=== PATIENT | female | born 1985 | race Caucasian/White ===

== ENCOUNTER 2017-09-26 10:56 | Emergency (ER) | payer OTHER ==
[~2017-09-26] VITALS: Ht 154.9 cm; Wt 46.8 kg
[2017-09-26 10:57] VITALS: BP 114/74; PULSE 115; RESP 17; TEMP 99.2; O2SAT 100
[2017-09-26 12:04] LABS: AUTOMATED NEUTROPHIL # 1.5 TH/MM3 (1.8-7.7); BASOPHIL % 1.4 % (0.0-2.0); EOSINOPHIL % 0.2 % (0.0-4.0); HEMATOCRIT 38.8 % (35.0-46.0); HEMOGLOBIN 13.1 GM/DL (11.6-15.3); LYMPH % 17.1 % (9.0-44.0); LYMPHOCYTE # 0.4 TH/MM3 (1.0-4.8); MEAN CELL VOLUME 89.4 FL (80.0-100.0); MEAN CORPUSCULAR HEMOGLOBIN 30.1 PG (27.0-34.0); MEAN CORPUSCULAR HGB CONC 33.7 % (32.0-36.0); MEAN PLATELET VOLUME 7.7 FL (7.0-11.0); MONO % 6.8 % (0.0-8.0); MONOCYTE # 0.1 TH/MM3 (0-0.9); NEUT % 74.5 % (16.0-70.0); PLATELET COUNT 158 TH/MM3 (150-450); RED BLOOD COUNT 4.34 MIL/MM3 (4.00-5.30); RED CELL DISTRIBUTION WIDTH 12.4 % (11.6-17.2)
[2017-09-26 12:05] LABS: ALBUMIN 4.3 GM/DL (3.4-5.0); AST (GOT) 41 U/L (15-37); BICARBONATE 27.5 MEQ/L (21.0-32.0); BLOOD UREA NITROGEN 7 MG/DL (7-18); CALCIUM 8.8 MG/DL (8.5-10.1); CHLORIDE 99 MEQ/L (98-107); CREATININE 0.92 MG/DL (0.50-1.00); GLOMERULAR FILTRATION RATE 71 ML/MIN (>89); GLUCOSE,RANDOM 121 MG/DL (74-106); SODIUM (NA) 132 MEQ/L (136-145)
[2017-09-26 12:07] LABS: ALT (GPT) 45 U/L (10-53)
[2017-09-26 12:08] LABS: ALKALINE PHOSPHATASE 59 U/L (45-117); TOTAL BILIRUBIN ADULT 0.2 MG/DL (0.2-1.0); TOTAL PROTEIN 8.5 GM/DL (6.4-8.2)
[2017-09-26 13:11] LABS: BILIRUBIN, URINE NEG (NEG); BLOOD, URINE NEG (NEG); GLUCOSE,URINE NEG (NEG); KETONE, URINE NEG (NEG); NITRITE,URINE NEG (NEG); SQUAMOUS EPITHELIAL CELL URINE 1 /hpf (0-5); URINE COLOR LIGHT-YELLOW (YELLW/STRAW); URINE LEUKOCYTE ESTERASE NEG (NEG)
[2017-09-26 14:13] VITALS: BP 107/79; PULSE 110; RESP 16; O2SAT 100
[2017-09-26] MEDS ORDERED: PLAQ200T PO (14:16)
--- NOTE | 2017-09-26 14:33 | PD ---
HPI Chief Complaint: Flank/Kidney Pain Time Seen by Provider: 13:54 Travel History International Travel<30 days: No Contact w/Intl Traveler<30days: No Traveled to known affect area: No History of Present Illness HPI 32-year-old female complains of fever, headache, low back pain, low abdominal pain, dysuria. Patient states that the symptoms started about 10 days ago. Patient has history of Sogren's syndrome and on Plaquenil. Patient was seen by personal physician last week and was put on prescription for Bactrim DS for possible UTI. Patient on day #6 of Bactrim DS. Patient states that the dysuria resolved however patient had persistent headache, low back pain, fever, low abdominal pain. Patient had outpatient blood test done 4 days ago. Blood test shows mild low WBC count. Patient was advised by personal physician to the ED for evaluation. Patient states that she had low-grade fever at home. Patient states that she has aching pain localized low back and lower abdomen. Patient denies any dysuria today. Patient denies any vaginal discharge or bleeding. PFSH Past Medical History Autoimmune Disease: Yes (SJOGRENS SYNDROME) ?: Not LMP: 08/29/17 Past Surgical History Section: Yes Gynecologic Surgery: Yes Social History Alcohol Use: No Tobacco Use: No Substance Use: No Allergies-Medications (Allergen,Severity, Reaction): Coded Allergies: No Known Allergies (Unverified , 09/26/17) Reported Meds & Prescriptions Reported Meds & Active Scripts Active Reported Plaquenil (Hydroxychloroquine Sulfate) 200 Mg Tab 200 Mg PO BID Take with food Review of Systems General / Constitutional: Positive: Fever Eyes: No: Visual changes HENT: Positive: Headaches Cardiovascular: No: Chest Pain or Discomfort Respiratory: No: Shortness of Breath Gastrointestinal: Positive: Abdominal Pain Genitourinary: No: Dysuria Musculoskeletal: No: Pain Skin: No Rash Neurologic: No: Weakness Psychiatric: No: Depression Endocrine: No: Polydipsia Hematologic/Lymphatic: No: Easy Bruising Physical Exam Narrative GENERAL: Well-nourished, well-developed patient. SKIN: Focused skin assessment warm/dry. HEAD: Normocephalic. EYES: No scleral icterus. No injection or drainage. Pupils 2 mm equal reactive. NECK: Supple, trachea midline. No JVD or lymphadenopathy. No meningismus CARDIOVASCULAR: Regular rate and rhythm without murmurs, gallops, or rubs. RESPIRATORY: Breath sounds equal bilaterally. No accessory muscle use. GASTROINTESTINAL: Abdomen soft, nondistended. Mild tenderness on palpation low abdomen area, no rebound tenderness. No mass. MUSCULOSKELETAL: No cyanosis, or edema. BACK: mild tenderness on palpation lumbar area, without obvious deformity. No CVA tenderness. Neurologic exam normal. Data Data Last Documented VS Vital Signs Date Time Temp Pulse Resp B/P (MAP) Pulse Ox O2 Delivery O2 Flow Rate FiO2 09/26/17 14:13 110 16 107/79 (88) 100 09/26/17 10:57 99.2 Orders Orders Complete Blood Count With Diff (09/26/17 11:15) Comprehensive Metabolic Panel (09/26/17 11:15) Urinalysis - C+S If Indicated (09/26/17 11:15) Ed Urine Pregnancytest Poc (09/26/17 11:15) Lactic Acid Sepsis Protocol (09/26/17 11:15) Mri L Spine W&W/O Contrast (09/26/17 ) Ct Abd/Pel W Iv Contrast(Rout) (09/26/17 14:24) Ct Brain W/O Iv Contrast(Rout) (09/26/17 14:24) Iohexol 350 Inj (Omnipaque 350 Inj) (09/26/17 14:50) Gadodiamide Pf Inj (Omniscan Pf Inj) (09/26/17 15:39) Ed Discharge Order (09/26/17 16:39) Labs Laboratory Tests Test 09/26/17 11:27 09/26/17 12:50 White Blood Count 2.0 TH/MM3 Red Blood Count 4.34 MIL/MM3 Hemoglobin 13.1 GM/DL Hematocrit 38.8 % Mean Corpuscular Volume 89.4 FL Mean Corpuscular Hemoglobin 30.1 PG Mean Corpuscular Hemoglobin Concent 33.7 % Red Cell Distribution Width 12.4 % Platelet Count 158 TH/MM3 Mean Platelet Volume 7.7 FL Neutrophils (%) (Auto) 74.5 % Lymphocytes (%) (Auto) 17.1 % Monocytes (%) (Auto) 6.8 % Eosinophils (%) (Auto) 0.2 % Basophils (%) (Auto) 1.4 % Neutrophils # (Auto) 1.5 TH/MM3 Lymphocytes # (Auto) 0.4 TH/MM3 Monocytes # (Auto) 0.1 TH/MM3 Eosinophils # (Auto) 0.0 TH/MM3 Basophils # (Auto) 0.0 TH/MM3 CBC Comment DIFF FINAL Differential Comment Blood Urea Nitrogen 7 MG/DL Creatinine 0.92 MG/DL Random Glucose 121 MG/DL Total Protein 8.5 GM/DL Albumin 4.3 GM/DL Calcium Level 8.8 MG/DL Alkaline Phosphatase 59 U/L Aspartate Amino Transf (AST/SGOT) 41 U/L Alanine Aminotransferase (ALT/SGPT) 45 U/L Total Bilirubin 0.2 MG/DL Sodium Level 132 MEQ/L Potassium Level 3.7 MEQ/L Chloride Level 99 MEQ/L Carbon Dioxide Level 27.5 MEQ/L Anion Gap 6 MEQ/L Estimat Glomerular Filtration Rate 71 ML/MIN Lactic Acid Level 0.8 mmol/L Urine Color LIGHT-YELLOW Urine Turbidity CLEAR Urine pH 7.0 Urine Specific [place] 1.003 Urine Protein NEG mg/dL Urine Glucose (UA) NEG mg/dL Urine Ketones NEG mg/dL Urine Occult Blood NEG Urine Nitrite NEG Urine Bilirubin NEG Urine Urobilinogen LESS THAN 2.0 MG/DL Urine Leukocyte Esterase NEG Urine RBC LESS THAN 1 /hpf Urine WBC 1 /hpf Urine Squamous Epithelial Cells 1 /hpf Microscopic Urinalysis Comment CULT NOT INDICATED MDM Medical Decision Making Medical Screen Exam Complete: Yes Emergency Medical Condition: Yes Interpretation(s) Last Impressions Head CT 09/26/[id number] Signed Impressions: Service Date/Time: Tuesday, September 26, 2017 14:45 - CONCLUSION: Intracranially negative. Minimal air and mucosal thickening lateral wall left maxillary sinus Ronnie Anna MD Abdomen/Pelvis CT [id number]/26/[id number] Signed Impressions: Service Date/Time: Tuesday, September 26, 2017 14:49 - CONCLUSION: 7 mm left kidney upper pole calyceal nonobstructing stone. Ronnie Anna MD 1625 PM. MRI lumbar spine negative acute pathology. CBC WBC 2.0. 74 neutrophil. Sodium 132. Lactic acid 0.8. UA is negative. Differential Diagnosis Differential diagnosis including viral syndrome, tension headache, cluster headache, migraine headache, UTI, pyelonephritis, nephrolithiasis, colitis, discitis, osteomyelitis, spinal abscess. Narrative Course 32-year-old female with headache, low back pain, low abdominal pain, fever, being treated for UTI. Diagnosis Primary Impression: Abdominal pain Qualified Codes: R10.30 - Lower abdominal pain, unspecified Additional Impressions: Myalgia Viral syndrome Joseu Person MD Sep 26, 2017 14:33
[2017-09-26] MEDS ORDERED: IOHEXOL 350 MG/ML 10 ML VIAL (for RAD DIAG) IVCONTRAST ONE (14:50)
--- NOTE | 2017-09-26 15:00 | RADRPT ---
EXAM DATE/TIME: 09/26/2017 14:45 [facility] COMPARISON: No previous studies available for comparison. INDICATIONS : Fever RADIATION DOSE: 42.03 CTDIvol (mGy) MEDICAL HISTORY : sjogrens syndrome SURGICAL HISTORY : section. ENCOUNTER: Initial ACUITY: 2 weeks PAIN SCALE: 6/10 LOCATION: Bilateral cranial TECHNIQUE: Multiple contiguous axial images were obtained of the head. Using automated exposure control and adj ustment of the mA and/or kV according to patient size, radiation dose was kept as low as reasonably a chievable to obtain optimal diagnostic quality images. DICOM format image data is available electro nically for review and comparison. FINDINGS: CEREBRUM: The ventricles are normal for age. No evidence of midline shift, mass lesion, hemorrhage or acute in farction. No extra-axial fluid collections are seen. POSTERIOR FOSSA: The cerebellum and brainstem are intact. The 4th ventricle is midline. The cerebellopontine angle i s unremarkable. EXTRACRANIAL: The visualized portion of the orbits is intact. Mucosal thickening lateral wall left maxillary sinus SKULL: The calvaria is intact. No evidence of skull fracture. CONCLUSION: Intracranially negative. Minimal air and mucosal thickening lateral wall left maxillary sinus Ronnie Anna MD on September 26, 2017 at 14:56 Board Certified Radiologist. This report was verified electronically.
--- NOTE | 2017-09-26 15:30 | RADRPT ---
EXAM DATE/TIME: 09/26/2017 14:49 [facility] COMPARISON: No previous studies available for comparison. INDICATIONS : Flank pain IV CONTRAST: 56 cc Omnipaque 350 (iohexol) IV ORAL CONTRAST: No oral contrast ingested. RADIATION DOSE: 4.56 CTDIvol (mGy) MEDICAL HISTORY : sjogrens syndrome SURGICAL HISTORY : section. ENCOUNTER: Initial ACUITY: 2 weeks PAIN SCALE: 6/10 LOCATION: Bilateral flank TECHNIQUE: Volumetric scanning of the abdomen and pelvis was performed. Using automated exposure control and ad justment of the mA and/or kV according to patient size, radiation dose was kept as low as reasonably achievable to obtain optimal diagnostic quality images. DICOM format image data is available electro nically for review and comparison. FINDINGS: LOWER LUNGS: The visualized lower lungs are clear. LIVER: Homogeneous density without lesion. There is no dilation of the biliary tree. No calcified gallston es. Gallbladder seen as a luminal structure without evidence of wall thickening or stones. SPLEEN: Normal size without lesion. PANCREAS: Within normal limits. KIDNEYS: Normal in size and shape. There is no mass or hydronephrosis. There is a 7 mm left kidney upper pole calyceal nonobstructing stone. ADRENAL GLANDS: Within normal limits. VASCULAR: There is no aortic aneurysm. BOWEL/MESENTERY: The stomach, small bowel, and colon demonstrate no acute abnormality. There is no free intraperitone al air or fluid. Appendix visualized and is normal ABDOMINAL WALL: Within normal limits. RETROPERITONEUM: There is no lymphadenopathy. BLADDER: No wall thickening or mass. REPRODUCTIVE: Within normal limits. INGUINAL: There is no lymphadenopathy or hernia. MUSCULOSKELETAL: Within normal limits for patient age. CONCLUSION: 7 mm left kidney upper pole calyceal nonobstructing stone. Ronnie Anna MD on September 26, 2017 at 15:23 Board Certified Radiologist. This report was verified electronically.
[2017-09-26] MEDS ORDERED: GADODIAMIDE PF 287 MG/ML 5 ML VIAL (for RAD MRI) IV PUSH ONE (15:39)
--- NOTE | 2017-09-26 16:19 | RADRPT ---
EXAM DATE/TIME: 09/26/2017 15:30 [facility] COMPARISON: CT ABDOMEN & PELVIS W CONTRAST, September 26, 2017, 14:49. INDICATIONS : Osteomyelitis. CONTRAST: 9 cc Omniscan (gadodiamide) IV MEDICAL HISTORY : Sjogren's syndrome. SURGICAL HISTORY : section. ENCOUNTER: Subsequent ACUITY: 1 week PAIN SCORE: 5/10 LOCATION: Lower back. TECHNIQUE: Multiplanar multisequence MRI of the lumbar spine was performed with and without contrast. FINDINGS: The most caudal appearing lumbar vertebra is numbered as L5. VERTEBRAE: Homogeneous signal. Normal alignment. CONUS: Normal level and configuration. POST CONTRAST: No abnormal areas of contrast enhancement are seen. T12-L1: The thecal sac has a normal diameter. No evidence of disc bulge or protrusion. The neural foramina are patent bilaterally. L1-L2: The thecal sac has a normal diameter. No evidence of disc bulge or protrusion. The neural foramina are patent bilaterally. L2-L3: The thecal sac has a normal diameter. No evidence of disc bulge or protrusion. The neural foramina are patent bilaterally. L3-L4: The thecal sac has a normal diameter. No evidence of disc bulge or protrusion. The neural foramina are patent bilaterally. L4-L5: The thecal sac has a normal diameter. No evidence of disc bulge or protrusion. The neural foramina are patent bilaterally. L5-S1: The thecal sac has a normal diameter. No evidence of disc bulge or protrusion. The neural foramina are patent bilaterally. CONCLUSION: Normal examination. Ronnie Anna MD on September 26, 2017 at 16:14 Board Certified Radiologist. This report was verified electronically.
[2017-09-26] MEDS ORDERED: ACETAMINOPHEN 325 MG TAB PO ONE (17:15)
== END 2017-09-26 17:21 | disposition home or self-care (01) ==
LOC: NEPD 10:56
DX: R10.30 Lower abdominal pain, unspecified (principal); B34.9 Viral infection, unspecified; M79.1 Myalgia; R51 Headache
CPT/HCPCS: 70450; 72158; 74177; 80053; 81001; 83605; 84703; 85025; 96374; 99285; A9579; Q9967